=== PATIENT | female | born 1995 | race Caucasian/White ===

== ENCOUNTER 2019-02-15 14:36 | Emergency (ER) | payer OTHER ==
--- NOTE | 2019-02-15 14:40 | ED Physician Documentation ---
General Adult - HISTORIAN Historian: patient - HPI Stated Complaint: left hand ring finger cut while cutting with a knife Chief Complaint: Laceration/Recheck/Suture Onset: minutes (30) Timing: still present Further Comments: yes (She was cutting a potato and she cut a "chunk" of her finger tip off. She has not had any meds . She denies any use of ice or other treatments. She notes she is UTD on her immunizations. She states it is painful. Denies any loss of sensation or loss of ROM) - ROS CONST: no problems MS/SKIN/LYMPH: none - PAST HX Past History: none Immunizations: UTD - SOCIAL HX Smoking History: non-smoker Alcohol Use: none Drug Use: none - FAMILY HX Family History: No - REVIEWED ASSESSMENTS Nursing Assessment Reviewed: Yes Vitals Reviewed: Yes General Adult Physical Exam - PHYSICAL EXAM GENERAL APPEARANCE: no distress EENT: eye inspection normal, no signs of dehydration NECK: normal inspection RESPIRATORY: no resp distress, chest non-tender, breath sounds normal CVS: reg rate & rhythm ABDOMEN: soft BACK: normal inspection SKIN: other (avulsion area small approx 2 cm on left ring finger. Pulses + sensation + FROM ) EXTREMITIES: non-tender NEURO: oriented X3 Discharge Clincal Impression: Avulsion of skin of left hand Qualifiers: Encounter type: initial encounter Qualified Code(s): S61.402A - Unspecified open wound of left hand, initial encounter Referrals: Primary Doctor,No [Primary Care Provider] - 2 Days Comments: 1. Keep dressing on and clean and dry x 24 hours 2. Keep finger elevated 3. Ice the area for comfort 4. Monitor for s/sx of infection 5. Return to ER for any increased concerns Condition: Stable Disposition: 01 HOME, SELF-CARE Decision to Admit: NO Date of Decison to Admit: 02/15/19 Decision Time: 14:51
[2019-02-15 14:56] VITALS: BP 123/74
== END 2019-02-15 14:57 | disposition home or self-care (01) ==
LOC: ED 14:36
DX: S61.205A Unspecified open wound of left ring finger without damage to nail, initial encounter (principal); W26.0XXA Contact with knife, initial encounter; Y93.G3 Activity, cooking and baking
CPT/HCPCS: 99282; J7030